=== PATIENT | female | born 1995 | race Hispanic/Latino ===

== ENCOUNTER 2019-02-27 16:27 | Emergency (ER) | payer SELFPAY ==
[2019-02-27 17:09] LABS: Absolute Lymphocytes (CBC) 2.4 K/uL (0.7-4.9); Absolute Monocytes 0.8 K/uL (0.1-1.3); Basophils % 0.8 % (0-1.3); Eosinophils % 0.9 % (0-4.4); Hematocrit 35.7 % (36.0-45.0); Lymphocytes % 20.9 % (15.3-44.8); MPV 7.8 fL (7.6-11.3); Monocytes % 7.1 % (3.3-12.3); RBC Red Blood Cell Count 4.11 M/uL (3.86-4.86)
[2019-02-27 17:50] LABS: BUN Blood Urea Nitrogen 11 mg/dL (7-18); Bicarbonate 22 mmol/L (21-32); Glucose Level 88 mg/dL (74-106); HCG, Quantitative 110767 mIU/mL (1-3); Potassium 3.4 mmol/L (3.5-5.1); Sodium Level 138 mmol/L (136-145)
--- NOTE | 2019-02-27 18:00 | RAD REPORT ---
EXAM DESCRIPTION: US - 1St Trimest Single 1St Fetus - 02/27/2019 5:48 pm CLINICAL HISTORY: with abdominal pain COMPARISON: None. FINDINGS: The uterus measures 9 x 5 x 5 centimeters. A gestational sac is present within the endome trium. Within this is a yolk sac and pole with a crown-rump length 2.5 centimeters. Cardiac act ivity 172 beats per minute Right ovary is normal in size and echotexture. Left ovary was not seen. Right and left adnexal unremarkable No significant free fluid is seen. IMPRESSION: Single live intrauterine with an estimated gestational age 9 weeks 0 days FELECIA 10/02/2019
--- NOTE | 2019-02-27 18:12 | EDPHYS ---
Physician Documentation [facility] Name: Solo Rodgers Age: 23 yrs Sex: Female : 1995 Arrival Date: 02/27/2019 Time: 16:29 Bed 14 Private MD: ED Physician Lino Daniels HPI: 02/27 16:41 This 23 yrs old Female presents to ER via Ambulatory with complaints of jmm Vaginal Bleeding, + Preg <12wks. 16:41 The patient presents to the emergency department with vaginal bleeding. jmm course: care: none, Leakage of Fluid: none appreciated, Ultrasound: the patient has not had an ultrasound, Risk/complications: no obvious risks or complications are appreciated. This is a 23 year old female with no chronic medical conditions that presents to the ED with complaints of vaginal bleeding. Patient states she noticed blood after wiping earlier today. Denies dysuria. LMP 11/28/2018. 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 - Social history:: Smoking status: Patient/guardian denies using tobacco. - Ebola Screening: : Patient negative for fever greater than or equal to 101.5 degrees Fahrenheit, and additional compatible Ebola Virus Disease symptoms Patient denies exposure to infectious person Patient denies travel to an Ebola-affected area in the 21 days before illness onset No symptoms or risks identified at this time. ROS: 16:41 Constitutional: Negative for fever, chills, and weight loss, Cardiovascular: Negative jmm for chest pain, palpitations, and edema, Respiratory: Negative for shortness of breath, cough, wheezing, and pleuritic chest pain, Abdomen/GI: Negative for abdominal pain, nausea, vomiting, diarrhea, and constipation. 16:41 : Positive for vaginal bleeding. 16:41 All other systems are negative. Exam: 16:41 Constitutional: This is a well developed, well nourished patient who is awake, alert, jmm and in no acute distress. Head/Face: atraumatic. Eyes: EOMI, no conjunctival erythema appreciated ENT: Moist Mucus Membranes Neck: Trachea midline, Supple Chest/axilla: Normal chest wall appearance and motion. Cardiovascular: Regular rate and rhythm. No edema appreciated Respiratory: Normal respirations, no respiratory distress appreciated 16:41 Back: Normal ROM Skin: General appearance color normal MS/ Extremity: Moves all extremities, no obvious deformities appreciated, no edema noted to the lower extremities Neuro: Awake and alert, normal gait Psych: Behavior is normal, Mood is normal, Patient is cooperative and pleasant 16:41 Abdomen/GI: Inspection: abdomen appears normal, Bowel sounds: normal, Palpation: abdomen is soft and non-tender, in all quadrants. Vital Signs: 16:42 BP 116 / 70; Pulse 87; Resp 19; Temp 98.2; Pulse Ox 100% on R/A; ss 17:40 BP 115 / 71; Pulse 84; Resp 15; Temp 98.4(O); Pulse Ox 100% on R/A; Pain 0/10; rb1 18:30 BP 116 / 72; Pulse 78; Resp 16; Temp 98.1(O); Pulse Ox 100% on R/A; Pain 0/10; rb1 MDM: 16:41 Patient medically screened. [facility] 18:10 Data reviewed: vital signs, nurses notes. Counseling: I had a detailed discussion with los the patient and/or guardian regarding: the historical points, exam findings, and any diagnostic results supporting the discharge/admit diagnosis, lab results, radiology results, the need for outpatient follow up, to return to the emergency department if symptoms worsen or persist or if there are any questions or concerns that arise at home. ED course: Patient is alert and non toxic in appearance in the ED; Patient is advised to follow up with OB for reevaluation. Patient is otherwise given strict return precautions. Patient understood and agrees with the plan of care. . 02/27 16:42 Order name: Quantitative Hcg; Complete Time: 17:53 [facility] 02/27 16:42 Order name: Abo/rh Typing; Complete Time: 17:41 [facility] 02/27 16:42 Order name: Basic Metabolic Panel; Complete Time: 17:53 [facility] 02/27 16:42 Order name: CBC with Diff; Complete Time: 17:41 [facility] 02/27 17:37 Order name: Urine Dipstick--Ancillary (enter results) ms 02/27 17:37 Order name: Urine --Ancillary (enter results) ms 02/27 16:42 Order name: IV Saline Lock; Complete Time: 17:07 [facility] 02/27 16:42 Order name: Labs collected and sent; Complete Time: 17:07 [facility] 02/27 16:42 Order name: NPO; Complete Time: 17:07 [facility] 02/27 16:42 Order name: Urine Dipstick-Ancillary (obtain specimen); Complete Time: 17:36 [facility] 02/27 16:42 Order name: 1st Trimest Single 1st Fetus; Complete Time: 18:04 [facility] Administered Medications: No medications were administered Point of Care Testing: Urine : 17:50 hCG Reading: Positive; Control Reading: Positive; rb1 Disposition: 22:17 Co-signature as Attending Physician, Lino Daniels MD Available for consultation at ps1 all times . Disposition: 02/27/19 18:11 Discharged to Home. Impression: Threatened . - Condition is Stable. - Discharge Instructions: Threatened Miscarriage, Pelvic Rest. - Medication Reconciliation Form, Thank You Letter, Antibiotic Education, Prescription Opioid Use form. - Follow up: Private Physician; When: 2 - 3 days; Reason: Recheck today's complaints, Continuance of care, Re-evaluation by your physician. Signatures: Dispatcher [employer] EDMS Geovanny Cartagena PA PA jmm Smirch, Shelby, RN RN Lino Craig MD MD ps1 Corrections: (The following items were deleted from the chart) 18:49 18:11 02/27/2019 18:11 Discharged to Home. Impression: Threatened . Condition ss is Stable. Forms are Medication Reconciliation Form, Thank You Letter, Antibiotic Education, Prescription Opioid Use. Follow up: Private Physician; When: 2 - 3 days; Reason: Recheck today's complaints, Continuance of care, Re-evaluation by your physician. [facility]
--- NOTE | 2019-02-27 18:12 | ER ---
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 Transition of care: patient was not received from another setting of care. Onset of symptoms was February 27, 2019. Risk Assessment: Do you want to hurt yourself or someone else? Patient reports no desire to harm self or others. Initial Sepsis Screen: Does the patient meet any 2 criteria? No. Patient's initial sepsis screen is negative. Does the patient have a suspected source of infection? No. Patient's initial sepsis screen is negative. Care prior to arrival: None. 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 - Social history:: Smoking status: Patient/guardian denies using tobacco. - Ebola Screening: : Patient negative for fever greater than or equal to 101.5 degrees Fahrenheit, and additional compatible Ebola Virus Disease symptoms Patient denies exposure to infectious person Patient denies travel to an Ebola-affected area in the 21 days before illness onset No symptoms or risks identified at this time. Screenin:35 Abuse screen: Denies threats or abuse. Nutritional screening: No deficits noted. rb1 Tuberculosis screening: No symptoms or risk factors identified. Fall Risk None identified. Assessment: 16:35 General: Appears in no apparent distress. comfortable, Behavior is calm, cooperative. rb1 Neuro: Level of Consciousness is awake, alert, obeys commands, Oriented to person, place, time, situation. Cardiovascular: Capillary refill < 3 seconds is brisk in bilateral fingers. Respiratory: Airway is patent Respiratory effort is even, unlabored, Respiratory pattern is regular, symmetrical. Derm: Skin is dry, Skin is normal, Skin temperature is warm. 16:35 Pain: Denies pain. GI: No signs and/or symptoms were reported involving the rb1 gastrointestinal system. : Reports vaginal bleeding that is light flow. 16:35 Obstetrical Assessment: Patient reports abdominal cramping, occasionally has cramping, rb1 but the cramps go away if the pt. rests.. 17:30 Reassessment: Patient appears in no apparent distress at this time. Patient and/or rb1 family updated on plan of care and expected duration. Pain level reassessed. Patient is alert, oriented x 3, equal unlabored respirations, skin warm/dry/pink. Patient denies pain at this time. 18:30 Reassessment: Patient appears in no apparent distress at this time. No changes from [facility] previously documented assessment. Vital Signs: 16:42 BP 116 / 70; Pulse 87; Resp 19; Temp 98.2; Pulse Ox 100% on R/A; ss 17:40 BP 115 / 71; Pulse 84; Resp 15; Temp 98.4(O); Pulse Ox 100% on R/A; Pain 0/10; rb1 18:30 BP 116 / 72; Pulse 78; Resp 16; Temp 98.1(O); Pulse Ox 100% on R/A; Pain 0/10; rb1 Vitals: 16:45 Heart Tones Too early to hear heart tones. [facility] ED Course: 16:29 Patient arrived in ED. as 16:32 Geovanny Cartagena PA is PHCP. [facility] 16:32 Lino Daniels MD is Attending Physician. [facility] 16:35 Patient has correct armband on for positive identification. Bed in low position. Call [facility] light in reach. Side rails up X 1. Pulse ox on. NIBP on. Warm blanket given. 16:41 Triage completed. ss 16:43 Arm band placed on. ss 16:54 Agata Santiago, RN is Primary Nurse. [facility] 16:57 Initial lab(s) drawn, by me, sent to lab. Inserted saline lock: 22 gauge in right dh3 antecubital area, using aseptic technique. Blood collected. 17:36 Urine collected: clean catch specimen, clear. [facility] 17:48 Ultrasound completed. Patient tolerated well. 3 17:48 US 1st Trimest Single 1st Fetus In Process Unspecified. EDMS 18:49 No provider procedures requiring assistance completed. IV discontinued, intact, ss bleeding controlled, No redness/swelling at site. Pressure dressing applied. Administered Medications: No medications were administered Point of Care Testing: Urine : 17:50 hCG Reading: Positive; Control Reading: Positive; rb1 Outcome: 18:11 Discharge ordered by . los 18:49 Discharged to home ambulatory. 18:49 Condition: good 18:49 Discharge instructions given to patient, family, Instructed on discharge instructions, follow up and referral plans. Demonstrated understanding of instructions, follow-up care. 18:49 Patient left the ED. Signatures: Dispatcher [employer] EDMS Geovanny Cartagena PA PA jmm Martinez, Amelia as Smirch, Shelby, RN RN Agata Santiago, DOROTA RN [facility] Rosangela Holt [facility] Keely Thao 3
[2019-02-27 19:34] VITALS: BP 116/70; TEMP 98.2; O2SAT 100
[2019-02-27 20:23] LABS: Urine Blood 2+ (NEG); Urine Glucose NEGATIVE (NEG); Urine Protein NEGATIVE (NEG)
== END 2019-02-27 18:49 | disposition home or self-care (01) ==
LOC: ER 16:27
DX: O20.0 Threatened abortion (principal); Z3A.09 9 weeks gestation of pregnancy
CPT/HCPCS: 36415; 76801; 80048; 81003; 81025; 84702; 85025; 86900; 86901; 99284

== ENCOUNTER 2019-09-08 10:08 | Inpatient (IN) | payer OTHER ==
[2019-09-08] MEDS ORDERED: Ringers Lactate 1,000 ML IV PRN (10:20)
[2019-09-08] MEDS ORDERED: BUTORPHANOL 1 MG/ML INJ IV PRN (10:20)
[2019-09-08] MEDS ORDERED: CARBOPROST TROME 250 MCG/ML IM PRN (10:20)
[2019-09-08] MEDS ORDERED: PROMETHAZINE 25 MG/ML VIAL IM PRN (10:20)
[2019-09-08] MEDS ORDERED: METHYLERGONOVINE 0.2MG/ML AMP IM PRN (10:20)
[2019-09-08] MEDS ORDERED: MIDAZOLAM HCL 2 MG/2 ML INJ IV PRN (10:20)
[2019-09-08] MEDS ORDERED: MEPERIDINE HCL 25 MG/0.5 ML IV PRN (10:20)
[2019-09-08] MEDS ORDERED: PENICILLIN 5 MU in NA CHLORIDE 0.9% 100 ML IV ONE (10:27)
[2019-09-08] MEDS ORDERED: PENICILLIN G POT 5 MU/100 ML VIAL IV ONE (10:30)
[2019-09-08] MEDS ORDERED: Ringers Lactate 1,000 ML IV SCH (11:00)
[2019-09-08] MEDS ORDERED: OXYTOCIN/LR 20 UNIT/1,000 ML BAG IV SCH ×2 (11:00→18:00)
[2019-09-08 11:12] LABS: Absolute Lymphocytes (CBC) 1.8 K/uL (0.7-4.9); Basophils % 0.6 % (0-1.3); Hematocrit 34.6 % (36.0-45.0); Lymphocytes % 19.2 % (15.3-44.8); MPV 8.4 fL (7.6-11.3); RBC Red Blood Cell Count 4.03 M/uL (3.86-4.86)
[2019-09-08 11:22] VITALS: BMI 28.7
[2019-09-08] MEDS ORDERED: LIDOCAINE 1% MPF 30 ML VIAL ONE (12:02)
[2019-09-08] MEDS ORDERED: PENICILLIN 2.5 MU in NA CHLORIDE 0.9% 100 ML IV SCH (14:30)
[2019-09-08] MEDS ORDERED: ACETAMINOPHEN 500 MG TAB PO PRN (17:35)
[2019-09-08] MEDS ORDERED: IBUPROFEN 200 MG TAB PO PRN (17:35)
[2019-09-08] MEDS ORDERED: BISACODYL 10 MG RECTAL SUPP RECT PRN (17:35)
[2019-09-08] MEDS ORDERED: DIPHENHYDRAMINE 25 MG TAB/CAP PO PRN (17:35)
[2019-09-08] MEDS ORDERED: Oxycodone HCl/Acetaminophen 1 TAB TAB PO PRN ×2 (17:35)
[2019-09-08] MEDS ORDERED: DOCUSATE NA/SENNA CONC 1 TAB PO PRN (17:35)
--- NOTE | 2019-09-08 19:12 | PREOPHP ---
Date of Admission: 09/08/2019 Solo Rodgers is a 24-year-old primigravida at 36 weeks 4 days, gestational diabetes in good control . Beta strep positive, Rh positive, immune to Rubella. Has been dilated at 5 cm or more for 2 or 3 weeks now. Came into the office today, thinking that she might have been leaking membranes was 6 cm, 70% effaced, and possibly even up to 90% effaced, but no definite rupture. However, after leaving t he office, said she had a gush of fluid. Came to Labor and Delivery. Nitrazine was positive and she is definitely ruptured. Patient has gotten her first dose of penicillin for more than an hour now. Re-exam shows patient is 6 to 6-1/2. She is cherrie fairly regularly on 4 milliunits of Pitocin . Complete rupture of the membranes performed, clear fluid. We have a female baby, who hopefully wi ll do quite well as far as pulmonary development, but patient knows we will not know that until after delivery. Patient's pain scale is on 2 at this point. She says she is going to try to go naturally and seems to be in good control at this point. Full labor talk given. Anticipate delivery sometime later today. ANNEL/ALYCE Voice ID: [id number]
[2019-09-09 00:59] LABS: RPR (Rapid Plasma Reagin) NON-REACT (NON-REACT)
--- NOTE | 2019-09-09 02:28 | OP ---
Surgeon: Luis Brock MD A 24-year-old primigravida, 36 weeks 4 days, has been noted to be 5 cm or more dilated for the last 3 visits. Today, she came in the office, she was 6 cm, shortly thereafter she experienced spontaneous rupture of membranes and went to Labor and Delivery. Nitrazine positive and she was beginning some early contractions. Beta strep was positive so she was given penicillin prophylaxis 2 doses during t he labor. Used Lamaze breathing techniques to best advantage. Second stage of about 30-45 minutes. Spontaneous vaginal delivery of a 6-pound, 11-ounce female, Apgars 9 and 9. Spontaneous second-degr ee laceration simulating episiotomy repaired with 2-0 chromic local infiltration. Schultze delivery of the placenta, which was inspected and noted to be intact and normal. 350 mL estimated blood loss. Tolerated all procedures well. Rh positive, immune to Rubella. Final Diagnoses: Intrauterine gestation, 36 weeks 4 days, spontaneous rupture of membranes. Penicil liz prophylaxis. Vaginal delivery. ANNEL/ALYCE Voice ID: [id number] Report ID: [id number]
[2019-09-09] MEDS ORDERED: Ringers Lactate 2,000 ML IV ONE (14:52)
[2019-09-09 15:41] VITALS: BP 123/76; TEMP 97.5
--- NOTE | 2019-09-10 02:17 | DS ---
Date of Discharge: 09/09/2019 History: A 24-year-old primigravida, at 36 weeks 4 days, noted to be significantly dilated for the l ast 2-3 weeks or more. At 36 weeks 4 days, had spontaneous rupture of membranes, came to Labor and D elivery, was started on penicillin prophylaxis. She received 2 doses during the labor. Started on l ight Pitocin augmentation after approximately 2 hours of the first dose of penicillin being administe red. Used Lamaze breathing techniques to best advantage. Delivered spontaneously after about a 30-4 5 minutes second stage of a 6-pound 11-ounce female, Apgars 9 and 9. Local infiltration for repair. Second-degree laceration. Schultze delivery of the placenta, which was inspected and noted to be in tact and normal. 350 mL blood loss estimated. Rh positive, immune to Rubella. ; afebrile , ambulating and voiding. Lochia is normal. She will be dismissed probably tomorrow morning to repo rt back to my office in 6 weeks for followup, to report any temperature elevation of 100 degrees or g reater, severe pain, heavy bleeding, or any other type of abnormalities. She has had her Tdap admini stration. She has no complaints or problems this morning. Final Diagnoses: Intrauterine gestation 36 weeks 4 days, spontaneous rupture of membranes, vaginal d elivery, penicillin prophylaxis. ANNEL/ALYCE Voice ID: [id number] Report ID: [id number]
[2019-09-10 19:34] LABS: HBsAG Nonreactive (Nonreactive)
== END 2019-09-09 21:13 | disposition home or self-care (01) | DRG 807 ==
LOC: 2ND-WC 10:08
PROVIDERS: ADMIT Specialist; ATTEND Specialist
PROC: 10E0XZZ Delivery of Products of Conception, External Approach (ICD-10-PCS; principal; 2019-09-08)
PROC: 0KQM0ZZ Repair Perineum Muscle, Open Approach (ICD-10-PCS; 2019-09-08)
DX: O70.1 Second degree perineal laceration during delivery (principal); Z37.0 Single live birth; O99.824 Streptococcus B carrier state complicating childbirth; O24.429 Gestational diabetes mellitus in childbirth, unspecified control; Z3A.36 36 weeks gestation of pregnancy
CPT/HCPCS: 36415; 76819; 85025; 86592; 86901; 87340; J0595; J2210; J2550; J2590; J7120